=== PATIENT | female | born 1965 | race Caucasian/White ===

== ENCOUNTER 2022-10-07 06:16 | Day surgery (SDC) | payer OTHER ==
[~2022-10-07 06:16] MED LIST: ANAPROX275 MG PO
== END 2022-10-07 15:55 | disposition home or self-care (01) ==
LOC: CIR.AMB 06:16
PROVIDERS: ATTEND Obstetrics & Gynecology
DX: N84.0 Polyp of corpus uteri (principal); Z20.822 Contact with and (suspected) exposure to COVID-19

== ENCOUNTER → 2022-10-07 06:43 | Outpatient (CLI) | payer OTHER | END | disposition home or self-care (01) | LOC: LAB 06:43 | PROVIDERS: ATTEND Obstetrics & Gynecology | DX: Z03.818 Encounter for observation for suspected exposure to other biological agents ruled out (principal); Z20.828 Contact with and (suspected) exposure to other viral communicable diseases ==